=== PATIENT | female | born 1955 | race Caucasian/White ===

== ENCOUNTER → 2023-03-09 12:05 | Outpatient (BNVA) | payer MEDICARE, SELFPAY | PROVIDERS: Visit Provider Nurse Practitioner Family | DX: S82.141A Displaced bicondylar fracture of right tibia, initial encounter for closed fracture (principal); W19.XXXA Unspecified fall, initial encounter | CPT/HCPCS: 73562 ==

== ENCOUNTER → 2023-03-13 11:01 | Outpatient (BNVA) | payer MEDICARE, SELFPAY | PROVIDERS: Referring Provider Nurse Practitioner Family; Visit Provider Nurse Practitioner Family | DX: M25.561 Pain in right knee (principal); S86.911A Strain of unspecified muscle(s) and tendon(s) at lower leg level, right leg, initial encounter; R26.89 Other abnormalities of gait and mobility; S82.141A Displaced bicondylar fracture of right tibia, initial encounter for closed fracture; W11.XXXA Fall on and from ladder, initial encounter; Z46.89 Encounter for fitting and adjustment of other specified devices | CPT/HCPCS: 73560; 73565; 97760; 99203; L1830 ==

== ENCOUNTER 2023-03-13 13:36 | Outpatient (CLI) | payer MEDICARE, SELFPAY | END 2023-03-13 13:37 | disposition home or self-care (01) | LOC: SPT 13:37 | PROVIDERS: Visit Provider Nurse Practitioner Family | DX: Z46.89 Encounter for fitting and adjustment of other specified devices (principal); M25.561 Pain in right knee | CPT/HCPCS: 97760; L1830 ==

== ENCOUNTER 2023-03-16 16:29 | Outpatient (CLI) | payer MEDICARE, SELFPAY ==
--- NOTE | 2023-03-16 17:00 | CT_ITS ---
WS: [id number] CT RIGHT KNEE, 3-D HISTORY: possible fracture Technique: All CT scans at [facility] use at least one of these dose optimization techniques: automated exposure control; mA and/or kV adjustment per patient size (includes targeted exams where dose is matched to clinical indication); or iterative reconstruction. DLP: 349.11 mGy.cm COMPARISON: 03/13/2023 and 03/09/2023 Acute, nondepressed lateral tibial plateau fracture. Fracture predominantly in the posterior tibial p lateau with extension into the metaphysis. No displacement. No loose body. No additional fractures an d no significant joint space narrowing. Fibular head is normal. No significant joint effusion. There is a very tiny amount of fluid which is normal in the suprapatel lar bursa. No large amount soft tissue edema surrounding the knee. CT/CT knee RT wo con* [id number] IMPRESSION: 1. Nondisplaced posterior lateral tibial plateau fracture. Corresponds to the radiographic findings on 03/09/2023. 2. No significant joint effusion or soft tissue edema.
== END 2023-03-16 16:30 | disposition home or self-care (01) ==
PROVIDERS: Visit Provider Nurse Practitioner Family
DX: S82.144A Nondisplaced bicondylar fracture of right tibia, initial encounter for closed fracture (principal); X58.XXXA Exposure to other specified factors, initial encounter; Y93.9 Activity, unspecified; Y92.9 Unspecified place or not applicable; Y99.9 Unspecified external cause status; R26.89 Other abnormalities of gait and mobility; M25.561 Pain in right knee
CPT/HCPCS: 73700

== ENCOUNTER 2023-07-23 15:25 | Outpatient (CLI) | payer MEDICARE, SELFPAY ==
--- NOTE | 2023-07-23 15:31 | XRR_ITS ---
PROCEDURE INFORMATION: Exam: XR Abdomen Exam date and time: 07/23/2023 3:40 PM Age: 68 years old Clinical indication: Pain; Other: Left flank; Prior surgery; Surgery date: 6+ months; Patient HX: HX of left kidney cancer; Additional info: Left flank pain TECHNIQUE: Imaging protocol: Radiologic exam of the abdomen. Views: 2 Views. Upright and supine views. COMPARISON: No relevant prior studies available. FINDINGS: Lungs: Bibasilar atelectasis versus minimal infiltrate. Heart/Mediastinum: Cardiomegaly. Gastrointestinal tract: Normal. No bowel dilation. Intraperitoneal space: Normal. No free air. Bones/joints: Unremarkable for age. XR/XR acute abdomen series [id number] IMPRESSION: 1. Cardiomegaly. 2. Bibasilar atelectasis versus minimal infiltrate.
== END 2023-07-23 15:26 | disposition home or self-care (01) ==
PROVIDERS: PCP Clinical Nurse Specialist Adult Health; Visit Provider Clinical Nurse Specialist Adult Health
DX: R10.9 Unspecified abdominal pain (principal); I51.7 Cardiomegaly; J98.11 Atelectasis
CPT/HCPCS: 74022; 81003

== ENCOUNTER 2023-08-09 11:39 | Outpatient (CLI) | payer MEDICARE, SELFPAY ==
--- NOTE | 2023-08-09 11:42 | MM_ITS ---
WS: [id number] BILATERAL SCREENING DIGITAL TOMOSYNTHESIS MAMMOGRAM WITH CAD HISTORY: screening for breast cancer COMPARISON: 11/23/2021 Bilateral CC and MLO views with tomosynthesis and synthetic mammography submitted. Computer aided det ection analyzed. Breast composition: There are scattered areas of fibroglandular density. No suspicious masses, microc alcifications or architectural distortion. Benign lymph node upper outer quadrant is stable. IMPRESSION: MM/[place] [id number] BI-RADS: 2-Benign FOLLOW UP: 1 Year Follow-up
--- NOTE | 2023-08-09 12:30 | US_ITS ---
WS: [id number] RENAL ULTRASOUND HISTORY: left flank pain COMPARISON: None available. TECHNIQUE: 2-D and color Doppler imaging of the kidney submitted. Right kidney: 11.5 cm x 4.5 cm x 4.8 cm. Cortex: 0.6 cm Normal size kidney. Focal cortical thinning is most significant in the lower pole. Minimum diameter o f the cortex is 0.6 cm. No hydronephrosis. No solid mass. Left kidney: 10.5 cm x 3.6 cm x 3.6 cm. Cortex: 0.7 cm Moderate cortical thinning involving the kidney. Mild increased echogenicity. Cortical cyst superior pole 6 x 7 x 7 mm. No obstruction. Aorta: Normal. Urinary Bladder: Nondistended. Incidental note is made is of a cortical hepatic cyst measuring 10 x 10 x 7 mm. IMPRESSION: 1. No hydronephrosis or obstruction. No solid renal mass. 2. Kidneys are measuring normal size but there is cortical thinning bilaterally, greatest on the LEFT .
== END 2023-08-09 11:40 | disposition home or self-care (01) ==
LOC: RAD 11:39
PROVIDERS: PCP Clinical Nurse Specialist Adult Health; Visit Provider Clinical Nurse Specialist Adult Health
DX: Z12.31 Encounter for screening mammogram for malignant neoplasm of breast (principal); R10.32 Left lower quadrant pain
CPT/HCPCS: 76770; 77063; 77067

== ENCOUNTER → 2023-08-24 11:23 | Outpatient (BNVA) | payer MEDICARE, SELFPAY | PROVIDERS: PCP Clinical Nurse Specialist Adult Health; Visit Provider Clinical Nurse Specialist Adult Health | DX: J06.9 Acute upper respiratory infection, unspecified (principal); R10.9 Unspecified abdominal pain; I48.91 Unspecified atrial fibrillation | CPT/HCPCS: 87426 ==

== ENCOUNTER → 2023-08-28 10:17 | Outpatient (BNVA) | payer MEDICARE, SELFPAY | PROVIDERS: PCP Clinical Nurse Specialist Adult Health; Referring Provider Clinical Nurse Specialist Adult Health; Visit Provider Internal Medicine Cardiovascular Disease | DX: I49.9 Cardiac arrhythmia, unspecified (principal) | CPT/HCPCS: 99203 ==

== ENCOUNTER 2023-09-03 14:09 | Outpatient (CLI) | payer MEDICARE, SELFPAY ==
--- NOTE | 2023-09-03 14:30 | CT_ITS ---
WS: [id number] CT ABDOMEN AND PELVIS NONCONTRAST HISTORY: pain in LUQ and left flank TECHNIQUE: Imaging performed through the abdomen and pelvis. Coronal and sagittal reformats are submi tted. All CT scans at [facility] use at least one of these dose optimization techniques: auto mated exposure control; mA and/or kV adjustment per patient size (includes targeted exams where dose is matched to clinical indication); or iterative reconstruction. DLP: 440.84 mGy.cm COMPARISON: No similar studies. Prior renal ultrasound 08/09/2023 Lower thorax: Lung bases are clear. Visualized heart is normal. No hiatal hernia. Liver: Liver is normal size. There is several areas of decreased attenuation within the liver. The la rgest is in the superior RIGHT lobe of the liver towards the diaphragmatic surface measuring 2.5 x 3. 1 cm. There is an additional well-circumscribed hypoechoic mass in the inferior RIGHT lateral liver m easuring 2.4 x 1.7 cm. There are a few additional very small areas of low attenuation which are proba prasad cysts. There is no bile duct dilatation. Gallbladder: Cholecystectomy. Pancreas: Pancreas is mildly atrophied. No duct dilatation. There is very slight fullness and very mi nimal decreased in attenuation at the pancreatic head. This area of decreased attenuation measures 2. 1 x 1.5 cm. Spleen: Normal size with granulomata. Adrenal glands: Normal. No mass. Right kidney: Normal size kidney with no mass or hydronephrosis. Left kidney: Focal cortical thinning and partial nephrectomy. Postsurgical changes. No solid mass. No obstruction. Aorta: Normal abdominal aorta, no aneurysm or atherosclerosis. No free fluid, intraperitoneal air or significant lymphadenopathy. GI tract: Normal noncontrast imaging of the stomach, small bowel and colon. No obstruction or wall th ickening. Prior appendectomy. Abdominal wall: Small umbilical hernia contains fat only. Pelvis: Prior hysterectomy. Osseous structures: Unremarkable. IMPRESSION: 1. Low-attenuation masses in the liver need to be further evaluated. Metastatic disease cannot be ex cluded. No prior studies for comparison. There is also additional fullness in the pancreatic head whi ch should be further evaluated. Consider CT of the abdomen and pelvis with IV and oral contrast. Ultr asound of the RIGHT upper quadrant also may provide additional information. Pancreas would be better evaluated by dedicated pancreatic CT. 2. Partial LEFT nephrectomy. No recurrent mass. 3. No ascites or adenopathy.
== END 2023-09-03 14:10 | disposition home or self-care (01) ==
LOC: RAD 14:09
PROVIDERS: PCP Clinical Nurse Specialist Adult Health; Visit Provider Clinical Nurse Specialist Adult Health
DX: R10.12 Left upper quadrant pain (principal); R16.0 Hepatomegaly, not elsewhere classified; R93.3 Abnormal findings on diagnostic imaging of other parts of digestive tract; Z90.5 Acquired absence of kidney
CPT/HCPCS: 74176

== ENCOUNTER 2023-09-11 15:09 | Outpatient (CLI) | payer MEDICARE, SELFPAY ==
--- NOTE | 2023-09-11 16:00 | CT_ITS ---
WS: [email or web address] CT ABDOMEN PELVIS TECHNIQUE: Noncontrast CT of the abdomen and contrast-enhanced CT of the abdomen and pelvis with timmy nal and sagittal reformatted images. CLINICAL INFORMATION: abnormal mass in liver COMPARISON: CT 09/03/2023 DLP: 1650.[address] scans at [facility] use at least one of these dose optimization techniques: automated e xposure control; mA and/or kV adjustment per patient size (includes targeted exams where dose is matc hed to clinical indication); or iterative reconstruction. FINDINGS: Lobular lesion in the dome of the liver with peripheral enhancement which fills in on the delayed kwasi ging compatible with cavernous hemangioma measuring 2.6 cm. Additional incidental hepatic cysts. 2.5 cm cavernous hemangioma RIGHT hepatic lobe laterally. No other suspicious lesions in the liver. Mild intrahepatic biliary ductal dilatation. Normal portal vein and splenic vein. Prior cholecystectomy. No evidence of mass or lesion in the pancreatic head. Normal pancreatic parenc hymal enhancement. Normal celiac and SMA. Bronchiectasis RIGHT middle lobe. Bibasilar atelectasis. Normal spleen. Splenic granulomas. Small esophageal hiatal hernia. Adrenal glands are normal. Normal renal parenchymal enhancement. No hydronephrosis. Incidental tiny renal cyst. No hydronephrosis in ei ther kidney. Partial nephrectomy LEFT kidney. Pelvic phleboliths. Tortuous sigmoid colon. No evidence of high-grade small or large bowel obstruction. Tiny fat-containi ng umbilical hernia. IMPRESSION: 1. Several cavernous hemangiomas and incidental hepatic cysts in the liver. No suspicious hepatic le sions. 2. Prior cholecystectomy. 3. No evidence of pancreatic head mass. 4. Prior postoperative changes partial LEFT nephrectomy. 5. Small esophageal hiatal hernia. 6. Tiny fat-containing umbilical hernia. 7. No other suspicious findings.
[2023-09-11 16:28] LABS: Blood Urea Nitrogen 18 mg/dL (8-23)
[2023-09-11] MEDS: iohexol 350 mg/mL 500 mL Btl (per mL) IV (16:35)
== END 2023-09-11 15:10 | disposition home or self-care (01) ==
LOC: RAD 15:12
PROVIDERS: PCP Clinical Nurse Specialist Adult Health; Visit Provider Clinical Nurse Specialist Adult Health
DX: D18.03 Hemangioma of intra-abdominal structures (principal); Z90.49 Acquired absence of other specified parts of digestive tract; Z90.5 Acquired absence of kidney
CPT/HCPCS: 74178; 82565; 84520; Q9967

== ENCOUNTER 2023-09-20 06:27 | Outpatient (CLI) | payer MEDICARE, SELFPAY ==
--- NOTE | 2023-09-20 06:30 | USR_ITS ---
PROCEDURE INFORMATION: Exam: US Abdomen, Limited; Right Upper Quadrant Exam date and time: 09/20/2023 6:41 AM Age: 68 years old Clinical indication: Abnormal findings; Abnormal radiologic finding of the abdomen; Radiologic exam and body structure: Mass in liver on CT scan, ; additional info: Mass in liver on CT scan, ruq US please for abnormal liver TECHNIQUE: Imaging protocol: Real time ultrasound of the abdomen with image documentation. Limited exam focused on the right upper quadrant. COMPARISON: CT abdomen pelvis wo/w [id number] 09/11/2023 4:30 PM FINDINGS: Liver: Small hepatic cyst +2 echogenic foci, likely hepatic hemangiomata, the largest 2.4 cm in maximum dimension. Gallbladder: Normal. No gallstones. There is no gallbladder wall thickening. Biliary ducts: Normal. No stones. No dilation. Pancreas: Visualized pancreas is unremarkable. Right kidney: Normal. No mass. No hydronephrosis. US/US abdomen limited [id number] IMPRESSION: The hepatic masses likely represent hemangioma.
== END 2023-09-20 06:28 | disposition home or self-care (01) ==
LOC: RAD 06:27
PROVIDERS: PCP Clinical Nurse Specialist Adult Health; Visit Provider Clinical Nurse Specialist Adult Health
DX: R93.5 Abnormal findings on diagnostic imaging of other abdominal regions, including retroperitoneum (principal); R16.0 Hepatomegaly, not elsewhere classified
CPT/HCPCS: 76705

== ENCOUNTER → 2023-09-26 13:23 | Outpatient (BNVA) | payer MEDICARE, SELFPAY | PROVIDERS: PCP Clinical Nurse Specialist Adult Health; Referring Provider Clinical Nurse Specialist Adult Health; Visit Provider Dermatology | DX: D48.5 Neoplasm of uncertain behavior of skin (principal); L81.4 Other melanin hyperpigmentation; L57.8 Other skin changes due to chronic exposure to nonionizing radiation; L82.1 Other seborrheic keratosis; D18.01 Hemangioma of skin and subcutaneous tissue | CPT/HCPCS: 11102; 99203 ==

== ENCOUNTER → 2024-01-28 13:09 | Outpatient (BNVA) | payer MEDICARE, SELFPAY | PROVIDERS: PCP Clinical Nurse Specialist Adult Health; Visit Provider Dermatology | DX: L90.5 Scar conditions and fibrosis of skin (principal); L81.4 Other melanin hyperpigmentation; L57.8 Other skin changes due to chronic exposure to nonionizing radiation; L82.1 Other seborrheic keratosis; D18.01 Hemangioma of skin and subcutaneous tissue; L82.0 Inflamed seborrheic keratosis; Z85.828 Personal history of other malignant neoplasm of skin | CPT/HCPCS: 17110; 99213 ==

== ENCOUNTER → 2024-08-12 14:57 | Outpatient (BNVA) | payer MEDICARE, SELFPAY | PROVIDERS: PCP Clinical Nurse Specialist Adult Health; Visit Provider Nurse Practitioner Family | DX: L90.5 Scar conditions and fibrosis of skin (principal); L81.4 Other melanin hyperpigmentation; L82.1 Other seborrheic keratosis; D18.01 Hemangioma of skin and subcutaneous tissue; Z85.828 Personal history of other malignant neoplasm of skin; L82.0 Inflamed seborrheic keratosis; L53.8 Other specified erythematous conditions; L29.89 Other pruritus; L57.0 Actinic keratosis | CPT/HCPCS: 17000; 17110; 99213 ==

== ENCOUNTER → 2024-09-01 14:59 | Outpatient (BNVA) | payer MEDICARE, SELFPAY | PROVIDERS: PCP Clinical Nurse Specialist Adult Health; Visit Provider Internal Medicine Cardiovascular Disease | DX: R00.2 Palpitations (principal); I49.9 Cardiac arrhythmia, unspecified; I49.3 Ventricular premature depolarization | CPT/HCPCS: 99213 ==

== ENCOUNTER → 2025-02-09 13:55 | Outpatient (BNVA) | payer MEDICARE, SELFPAY | PROVIDERS: PCP Clinical Nurse Specialist Adult Health; Visit Provider Nurse Practitioner Family | DX: L90.5 Scar conditions and fibrosis of skin (principal); L81.4 Other melanin hyperpigmentation; L82.1 Other seborrheic keratosis; D18.01 Hemangioma of skin and subcutaneous tissue; Z08 Encounter for follow-up examination after completed treatment for malignant neoplasm; Z85.828 Personal history of other malignant neoplasm of skin; L57.0 Actinic keratosis | CPT/HCPCS: 17000; 99213 ==

== ENCOUNTER → 2025-08-13 14:55 | Outpatient (BNVA) | payer MEDICARE, SELFPAY | PROVIDERS: PCP Clinical Nurse Specialist Adult Health; Visit Provider Nurse Practitioner Family | DX: D18.01 Hemangioma of skin and subcutaneous tissue (principal); L70.0 Acne vulgaris; Z08 Encounter for follow-up examination after completed treatment for malignant neoplasm; Z85.828 Personal history of other malignant neoplasm of skin; L82.0 Inflamed seborrheic keratosis; Z78.9 Other specified health status; L57.0 Actinic keratosis | CPT/HCPCS: 17000; 17110; 99214 ==

== ENCOUNTER → 2025-09-01 12:50 | Outpatient (BNVA) | payer MEDICARE, SELFPAY | PROVIDERS: PCP Internal Medicine; Visit Provider Internal Medicine Cardiovascular Disease | DX: R00.2 Palpitations (principal) | CPT/HCPCS: 99214 ==